=== PATIENT | male | born 1945 | race Caucasian/White ===

== ENCOUNTER 2019-08-04 19:22 | Inpatient (IN) | payer OTHER, MEDICARE ==
[~2019-08-04] VITALS: Ht 180.3 cm; Wt 82.9 kg
--- NOTE | ~2019-08-04 | EMS ---
[address] [address] EMS Patient Care Report Name: RAYNA NGUYEN Room #: 207-P ADM IN M.R.#: [id number] Admission: 08/04/19 Attend Phys: Stephania Orozco MD Discharge: Date of : 45 Report #: [id number] THIS REPORT FOR: //name// Report Transmitted: 08/05/2019 01:47 EMS Care Summary [facility] MED-ACT Incident [id number] @ 08/04/2019 18:23 Incident Location [address] [place] [address] Patient RAYNA NGUYEN Male, 74 Years 1945 Patient Address [address] [place] [address] Patient History Other,Cardiac Arrythmia,Depression, Patient Allergies No known allergies, Patient Medications Trazodone, Tamsulosin, Chief Complaint "My indigestion won't go away" Disposition Transported No Lights/[place] Dispatch Reason Chest Pain (Non-Traumatic) Transported To [facility] Narrative HISTORY: Upon EMS arrival the patient was laying supine on the ground. He stated he has had indigestion since 5pm, patient has a history of indigestion but normally the pain is not as intense, it goes away after taking alcaseltzer, and it normally has an onset after he eats a big meal usually with fatty food. [address] [address] EMS Patient Care Report Name: RAYNA NGUYEN Room #: 207-P [facility] IN [facility]#: [id number] Admission: 08/04/19 Attend Phys: Stephania Orozco MD Discharge: Date of : 45 Report #: [id number] He stated the pain came on acutley without warning and his alcaseltzer did not relive the pain. He rated the pain an 8/10 and he stated 10 min prior to EMS arrival he became clammy. He denied any synopal episode, weakness, increase in pain with exertion, pain with deep respirations, numbness or tingling. Patient staetd he has a "weak sphyncter" in his stomach. Patient stated he has a history of an irregular heart beat with PVC's. The patient denied having any history of heart attacks. He denied any SOB, syncopal episode, change in vision, radiating pain to his jaw, arm, or back, or N/V. Patient stated the pain was sharp in nature. He denied any recent surgeries, fevers, cough, illnesses, sore throat, or body aches. The patient stated he took four baby aspirin prior to EMS arrival per dispatches instructions. Patient denied any lightheadedness, dizziness, or change in pain when he sat up or stood up. TREATMENT: V/S monitored, 324mg of ASA taken orally prior to EMS arrival, bilateral BP's, EKG, 12 lead, IV established, BG, TEMP, patient was put on 2lpm of O2 via NC because of the frequency of the PVC's, patient was offered pain medications but he stated he did not want any narcotic pain medication, exams were repeated. TRANSPORT: The patient was able to stand and walk to the cot on his own power, he moved to the ED bed on his own power without incident. DESTINATION: Patient was taken to [facility] ED room 6, report was given to nursing staff. Initial Vitals @18:54P: 53, @18:48P: 55,PR Suspected: false @PTAR: 16,BP: 140/72,SpO2: 99, @PTAP: 64,R: 16,BP: 150/100,SpO2: 99, @19:08P: 54,R: 16,BP: 168/74,SpO2: 99, @18:56P: 57,PR Suspected: false @18:50P: 54,R: 16,BP: 134/81,Pain: 8/10,GCS: 15,Temp: 97.4F,Glucose: 135,SpO2: 99,Revised Trauma: 12, @19:15P: 60,R: 16,BP: 153/79,SpO2: 99, Assessments @18:33MENTAL:Person Oriented,Place Oriented,Time Oriented,Event Oriented,SKIN:HEENT:Eyes: No Abnormalities,LUNG SOUNDS:ABDOMEN:PELVIS//GI:EXTREMITIES:PULSE:Radial: 2+ Normal,NEURO: Impression Chest Pain / Discomfort [address] [address] EMS Patient Care Report Name: WENDYRAYNA G Room #: 207-P [facility] IN M.R.#: [id number] Admission: 08/04/19 Attend Phys: Stephania Orozco MD Discharge: Date of : 45 Report #: [id number] Procedures @18:5612-Lead ECGResponse: UnchangedSucceeded@18:54Saline Lock 10cc (20 ga) Site: Antecubital-LeftResponse: UnchangedSucceeded@PTAAspirin - 324 Milligrams (mg) - OralResponse: Unchanged@18:52Oxygen FlowRate: 2 Device: Nasal Cannula (NC) Response: UnchangedSucceeded Timeline 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,Aspirin - 324 Milligrams (mg) - Oral,Response: Unchanged 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,BP: 140/72 M,PULSE: ,RR: 16 R,SPO2: 99 Ox,ETCO2: ,BG: ,PAIN: ,GCS: , 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,BP: 150/100 M,PULSE: 64,RR: 16 R,SPO2: 99 Ox,ETCO2: ,BG: ,PAIN: ,GCS: , 18:20,Call Received 18:20,Psap Call 18:23,Dispatched 18:24,En Route 18:30,On Scene 18:32,At Patient 18:48,BP: / M,PULSE: 55,RR: R,SPO2: Ox,ETCO2: ,BG: ,PAIN: ,GCS: , 18:50,BP: 134/81 M,PULSE: 54,RR: 16 R,SPO2: 99 Ox,ETCO2: ,B,PAIN: 8,GCS: 15, 18:52,Oxygen FlowRate: 2 Device: Nasal Cannula (NC) Response: UnchangedSucceeded, 18:54,Saline Lock 10cc 20 ga Site: Antecubital-Left,Response: UnchangedSucceeded, 18:54,BP: / M,PULSE: 53,RR: R,SPO2: Ox,ETCO2: ,BG: ,PAIN: ,GCS: , 18:56,12-Lead ECG,Response: UnchangedSucceeded, 18:56,BP: / M,PULSE: 57,RR: R,SPO2: Ox,ETCO2: ,BG: ,PAIN: ,GCS: , 18:58,Depart Scene 19:08,BP: 168/74 M,PULSE: 54,RR: 16 R,SPO2: 99 Ox,ETCO2: ,BG: ,PAIN: ,GCS: , 19:15,BP: 153/79 M,PULSE: 60,RR: 16 R,SPO2: 99 Ox,ETCO2: ,BG: ,PAIN: ,GCS: , 19:16,At Destination 19:45,Call Closed Disclaimer v1.1 Copyright 2020 [employer] This EMS Care Summary contains data elements from the applicable legal record (which may be displayed differently). It is designed to provide pertinent information for the following purposes: continuity of care, clinical quality, and state data reporting. The complete legal record is available to ED staff and administrators of the receiving hospital in [employer]'s Patient Tracker. All data is provided "as is."
[~2019-08-04 19:22] MED LIST: ASA5UEC; FLOMAX PO; IMODIUM A-D1 MG/5 ML PO; MUCINEX600 MG PO; VITAMINS A-D-E1 EACH PO
[2019-08-04 19:23] VITALS: BP 113/85
[2019-08-04 19:39] LABS: ABSOLUTE NEUTROPHILS 5.4 thou/uL (1.4-8.2); BASOPHILS 0.3 % (0.0-2.0); EOSINOPHILS 0.7 % (0.0-3.0); HEMATOCRIT 42.8 % (42.0-52.0); HEMOGLOBIN 14.7 gm/dL (14.0-18.0); LYMPHOCYTES 16.3 % (24.0-44.0); MCHC 34.2 g/dL (28.0-37.0); MCV 96.5 fL (80.0-100.0); MONOCYTES 10.3 % (1.0-8.0); PLATELET COUNT 225 thou/uL (150-400); POLYS 72.4 % (36.0-66.0); RBC 4.43 mil/uL (4.50-6.00); RDW 13.7 % (10.5-14.5); WBC 7.5 thou/uL (4.0-11.0)
[2019-08-04] MEDS ORDERED: B COMPLEX1 EACH PO (19:50)
[2019-08-04 19:51] LABS: ANION GAP 12 mmol/L (7-16); BUN 22 mg/dL (7-18); CALCIUM 9.5 mg/dL (8.5-10.1); CHLORIDE 103 mmol/L (98-107); CO2 25 mmol/L (21-32); GLUCOSE 133 mg/dL (74-106); POTASSIUM 3.4 mmol/L (3.5-5.1); SODIUM 140 mmol/L (136-145)
[2019-08-04 19:55] LABS: APTT 28.1 Seconds (24.5-32.8); INR 1.2; PROTIME 12.2 Seconds (9.3-11.4)
[2019-08-04 20:01] LABS: SGOT 19 U/L (15-37); SGPT 34 U/L (30-65); TOTAL BILIRUBIN 0.7 mg/dL (<0.1-1.0); TROPONIN-I <0.06 ng/mL (<0.06)
[2019-08-04 22:17] VITALS: BP 158/75
[2019-08-04 22:28] VITALS: BP 158/75
[2019-08-04 22:33] VITALS: BP 155/71
[2019-08-04 22:48] LABS: CHOLESTEROL 114 mg/dL (<200); HDL CHOLESTEROL 32 mg/dL (>40); LDL CHOLESTEROL 70 mg/dL (<100); TC:HDL 3.6 Ratio (Not establshd); TRIGLYCERIDE 61 mg/dL (<150); VLDL 12 mg/dL (<40)
[2019-08-04 22:59] LABS: SERUM ASSESSMENT Clear
--- NOTE | 2019-08-05 00:28 | NUR ---
PT ADMITTED FROM HOME TO ED. PT REPORTED CHEST PAIN HEARTBURN THIS EVENING THAT WAS MORE SEVERE THAN USUAL AND NOT ABLE TO BE RELIEVED BY HOME HEART BURN MEDICATIONS. PT STATED HE NORMALLY HAS HEARTBURN AND PAIN IN THE AFTERNOON NOT EVENING. HE STATED HE CALLED EMS AND MENTIONED NOW HIS NEIGHBORS KNOW HE IS AT THE HOSPITAL. PT REPORTS CHRONIC PAIN NECK AND SHOULDER ISSUES RATED 5 TAKES TYLENOL. REPORTS INCREASE WORKLOAD FROM HOME RELATED TO COVID AND INCREASE IN STRESS RELATED TO THIS BUT GRATEFUL WORKING. 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 PT ALSO STATED HE WANTED TO HAVE A GI CONSULT THAT HE HAS NOT PREVIOUSLY HAD A COLONSCOPY. VERBALIZED UNDERSTANDING TO CALL FOR ASSISTANCE WITH AMBULATION. IVF INTACT. NO C/O PAIN AT THIS TIME. PT HAS HAD PHONE CONTACT WITH HIS . REPORTED HOPES FOR DC IN AM.
[2019-08-05 05:51] VITALS: BP 127/70
[2019-08-05 07:30] VITALS: BP 123/74
[2019-08-05 11:08] VITALS: BP 123/74
--- NOTE | 2019-08-05 13:58 | NUR ---
ASSUMED CARE OF PATIENT AT 0700. ASSESSMENT COMPLETED. PATIENT C/O ACHE IN EPIGASTRIC AREA AT 2/10, STATES THAT IT IS SIGNIFICANTLY DECREASED FROM FIRST ADMISSION. PAIN WAS COMPLETELY GONE AFTER BREAKFAST. CARDIOLOGY CONSULT AND EKG PERFORMED. DR. NAGY ORDERED CARDIOLOGY PROCEDURES TO BE DONE AN OUTPATIENT. DISCHARGE ORDERS GIVEN. IV AND TELE REMOVED. DISCHARGE PAPERWORK AND CHANGE IN MEDS REVIEWED. PATIENT TAKEN VIA WHEELCHAIR TO THE EMERGENCY ENTRANCE WHERE HE WAS DRIVEN HOME BY HIS . PATIENT STATES THAT HE FEELS BETTER THAN HE DID WHEN HE ARRIVED AND STATES THAT HE HAS ALL OF HIS BELONGINGS.
[2019-08-06 07:08] LABS: GLYCOHEMOGLOBIN (HGB A1C) 5.6 % (4.8-5.6)
--- NOTE | 2019-08-06 08:03 | EKG ---
[facility] [place] [address] ELECTROCARDIOGRAM REPORT Name: RAYNA NGUYEN Room #: 207-[facility] IN M.R.#: [id number] Admission: 08/04/19 Attend Phys: Stephania Orozco MD Discharge: 08/05/19 Date of : 45 Report #: [id number] THIS REPORT FOR: cc: Kevin Gill MD, Christopher B. 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: [place] : 1945 Requested By: Ke Chavira Order Number: [id number] MD: Ernesto Wilson Measurements Intervals [place] Rate: 51 P: 64 MS: 184 QRS: 23 QRSD: 99 T: 60 QT: 420 QTc: 387 Interpretive Statements Sinus rhythm Abnormal R-wave progression, early transition Baseline wander in lead(s) V3 Compared to ECG 11/07/2009 16:50:02 Ventricular premature complex(es) no longer present Electronically Signed On 08-06-2019 8:01:10 CDT by Ernesto Wilson [email or web address] <ELECTRONICALLY SIGNED> By: Ernesto Wilson MD, [facility] 08/06/19800 19 19 Ernesto Wilson MD, [facility] /EPI
--- NOTE | 2019-08-06 08:04 | EKG ---
[facility] [place] [address] ELECTROCARDIOGRAM REPORT Name: RAYNA NGUYEN Room #: 207-P DIS IN M.R.#: [id number] Admission: 08/04/19 Attend Phys: Stephania Orozco MD Discharge: 08/05/19 Date of : 45 Report #: [id number] THIS REPORT FOR: cc: Kevin Gill MD, Christopher B. MD Lundgren,Ernesto Reddy MD 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 08/06/19802 6 6 Ernesto Wilson MD, [facility] /EPI
== END 2019-08-05 12:46 | disposition home or self-care (01) | DRG 310 ==
LOC: ER 19:22 → EROBS 21:50 → 2N 22:26
PROVIDERS: Emergency Medicine; Nurse Practitioner Family; ADMIT Internal Medicine
DX: I49.3 Ventricular premature depolarization (principal); K21.9 Gastro-esophageal reflux disease without esophagitis; K58.9 Irritable bowel syndrome, unspecified; N40.0 Benign prostatic hyperplasia without lower urinary tract symptoms; K57.90 Diverticulosis of intestine, part unspecified, without perforation or abscess without bleeding; K40.90 Unilateral inguinal hernia, without obstruction or gangrene, not specified as recurrent; G89.29 Other chronic pain; M54.9 Dorsalgia, unspecified; Z79.899 Other long term (current) drug therapy; Z91.048 Other nonmedicinal substance allergy status; Z82.49 Family history of ischemic heart disease and other diseases of the circulatory system; Z87.891 Personal history of nicotine dependence
CPT/HCPCS: 10081

== ENCOUNTER 2019-08-06 05:29 | Inpatient (IN) | payer OTHER, MEDICARE ==
[~2019-08-06] VITALS: Ht 180.3 cm; Wt 78.9 kg
[~2019-08-06 05:29] MED LIST changes: +B COMPLEX1 EACH PO
[2019-08-06 05:39] VITALS: BP 141/75
[2019-08-06 06:45] LABS: ABSOLUTE NEUTROPHILS 15.4 thou/uL (1.4-8.2); BASOPHILS 0.1 % (0.0-2.0); HEMATOCRIT 41.3 % (42.0-52.0); HEMOGLOBIN 13.9 gm/dL (14.0-18.0); LYMPHOCYTES 2.1 % (24.0-44.0); MCH 32.7 pg (26.0-34.0); MCHC 33.6 g/dL (28.0-37.0); MCV 97.4 fL (80.0-100.0); MONOCYTES 10.4 % (1.0-8.0); PLATELET COUNT 196 thou/uL (150-400); POLYS 87.4 % (36.0-66.0); RBC 4.24 mil/uL (4.50-6.00); RDW 14.2 % (10.5-14.5); WBC 17.6 thou/uL (4.0-11.0)
[2019-08-06 06:56] LABS: ANION GAP 8 mmol/L (7-16); BUN 12 mg/dL (7-18); CALCIUM 9.6 mg/dL (8.5-10.1); CHLORIDE 103 mmol/L (98-107); CO2 28 mmol/L (21-32); CREATININE 0.9 mg/dL (0.7-1.3); GLUCOSE 111 mg/dL (74-106); SODIUM 139 mmol/L (136-145)
[2019-08-06 07:10] LABS: ALBUMIN 3.7 g/dL (3.4-5.0); LIPASE 83 U/L (73-393); SGOT 27 U/L (15-37); SGPT 32 U/L (30-65); TOTAL BILIRUBIN 1.7 mg/dL (<0.1-1.0); TROPONIN-I <0.06 ng/mL (<0.06)
--- NOTE | 2019-08-06 08:14 | EKG ---
[facility] [place] [address] ELECTROCARDIOGRAM REPORT Name: RAYNA NGUYEN Room #: [facility]#: [id number] Admission: 08/06/19 Attend Phys: Discharge: Date of : 45 Report #: [id number] THIS REPORT FOR: cc: Kevin Gill MD, Christopher B. MD Lundgren,Ernesto Reddy MD [facility] ~ THIS REPORT FOR: //name// [facility] ED Test Date: 2019-08-06 Test Time: 06:29:07 Pat Name: RAYNA NGUYEN Department: Room: Gender: Check Pilot: [place] [id number] : 1945 Requested By: Ke Chavira Order Number: [id number] MD: Ernesto Wilson Measurements Intervals [place] Rate: 74 P: 30 VA: 160 QRS: -11 QRSD: 99 T: 25 QT: 360 QTc: 400 Interpretive Statements Sinus rhythm RSR' in V1 or V2, right VCD Compared to ECG 11/07/2009 16:50:02 No significant change was found Electronically Signed On 08-06-2019 8:12:57 CDT by Ernesto Wilson [email or web address] <ELECTRONICALLY SIGNED> By: Ernesto Wilson MD, [facility] 08/06/19 0812 0629 Ernesto Wilson MD, [facility] /EPI
[2019-08-06 10:00] LABS: LARGE PLATELETS OCCASIONAL
[2019-08-06 16:08] VITALS: BP 122/66
--- NOTE | 2019-08-06 16:28 | NUR ---
74 YO MALE ADMITTED TO 443 BY CART FROM ED. A&OX4. IV INTACT IN R AC INFUSING FLUIDS ORDERED. PT UP WITH STAND BY ASSIST. MRCP WAS COMPLETED TODAY. ERCP WILL BE TOMORROW. ORIENTED PT TO ROOM/ CALL LIGHT. PLACED PT ON REG DIET, WILL BE NPO AFTER MN. WILL CONT POC.
[2019-08-06 19:27] VITALS: BP 106/64
[2019-08-07] VITALS (9 sets, daily range): BP systolic 105–138; BP diastolic 52–74
[2019-08-07 02:09] LABS: URINE BILIRUBIN 1+ (Negative); URINE BLOOD 1+ (Negative); URINE CLARITY CLEAR; URINE COLOR YELLOW; URINE GLUCOSE-RANDOM* NEGATIVE (Negative); URINE KETONES NEGATIVE (Negative); URINE LEUKOCYTES-REFLEX NEGATIVE (Negative); URINE NITRITE-REFLEX NEGATIVE (Negative); URINE PROTEIN (DIPSTICK) 1+ (Negative); URINE SPECIFIC GRAVITY 1.025 (1.005-1.035)
[2019-08-07 02:32] LABS: BACTERIA-REFLEX 1-9 Few /HPF (None Seen); CASTS None Seen /LPF (None Seen); CRYSTALS None Seen /LPF (None Seen); MUCUS 0-3 Light strn/LPF (None Seen); SQUAMOUS 0-3 Few /LPF (0-3); URINE RBC 3-10 Few /HPF (0-2); URINE WBC-REFLEX 0-5 Rare /HPF (0-5)
--- NOTE | 2019-08-07 05:25 | NUR ---
ASSESSED AT START OF SHIFT PT A&OX4. C/O MILD HEADACHE RELIEF WITH TYLENOL. PT UP AD JORDI TO THE BATHROOM. UA COLLECTED AND SENT TO LAB. IV INTACT AND ABX INFUISING. CALLED DR ANDERSON PT NPO FOR POSSIBLE ERCP TOMORROW. CALL LIGHT IN REACH WILL CONT WITH POC TILL EOS.
[2019-08-07 09:19] LABS: ALBUMIN 2.8 g/dL (3.4-5.0); CALCIUM 9.1 mg/dL (8.5-10.1); CREATININE 1.1 mg/dL (0.7-1.3); POTASSIUM 3.6 mmol/L (3.5-5.1); TOTAL BILIRUBIN 2.2 mg/dL (<0.1-1.0)
--- NOTE | 2019-08-07 09:48 | NUR ---
ASSESSMENT: CM REVIEWED CHART AND SPOKE WITH PATIENTS . PT IS OUT IN SURGERY THIS AM FOR CASI LUCAS. 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 REPORTS PATIENT DOES NOT HAVE ANY DME OR THE NEED FOR IT. PT LIVES IN A HOUSE WITH HIS . SHE REPORTS HAVING ABOUT 11 STEPS FROM THE GARAGE TO ENTER THE MAIN LEVEL OF THE HOME THAT HAS HANDRAILS. SHE STATES PATIENT HAS NEVER HAD HH OR BEEN TO A SNF. CM DISCUSSED ROLE. PT ANTICIPATES DISCHARGING HOME WITH NO NEEDS AT DISCHARGE. CM WILL CONTINUE TO FOLLOW TO ASSIST NEDED.
--- NOTE | 2019-08-07 17:58 | NUR ---
Assumed care of pt at 0700. Pt a&ox4. Pt had lapascopic cholecystectomy this am. Incisions c/d/i. Pain controlle with prn pain meds. Family called by doctor and patient. States he does not want nurse to call family. Tolerating diet well. Voided well post-op. Call light within reach. Will continue to monitor.
[2019-08-08 05:36] VITALS: BP 131/67
[2019-08-08 07:40] VITALS: BP 138/75
--- NOTE | 2019-08-08 08:04 | NUR ---
PT HAD A LOW GRADE TEMP AT THE START OF SHIFT,TYLENOL ADMINISTERED,EFFECTIVE PT UP ADLIB IN ROOM TO THE BR.4 LAP SITES C/D/I.PT STATED THAT HE TAKES FLOMAX AND PEPCID NEEDED AT HOME,BUT HE DOESN'T HAVE THE ORDER NOW.AM NURSE NOTIFIED TO FOLLOW UP ON.PT LOOKING FORWARD TO BE DC TODAY.REPORT TO AM NURSE.
[2019-08-08 09:41] VITALS: BP 138/75
[2019-08-08 12:17] VITALS: BP 138/75
--- NOTE | 2019-08-08 12:18 | O ---
[facility] [place] [address] OPERATIVE REPORT Name: RAYNA NGUYEN Room #: 443-P [facility] IN M.R.#: [id number] Admission: 08/06/19 Attend Phys: Navi Guan MD Discharge: 08/08/19 Date of : 45 Report #: [id number] THIS REPORT FOR: cc: Kevin Gill MD, Christopher B. MD Patterson,Marlon Grissom MD ~ CC: Kevin Guan DATE OF SERVICE: 08/07/2019 POSTOPERATIVE DIAGNOSIS: Acute cholecystitis. POSTOPERATIVE DIAGNOSIS: Acute gangrenous cholecystitis. OPERATION: Laparoscopic cholecystectomy with intraoperative cholangiogram. SURGEON: Marlon Gu MD ANESTHESIA: General. ESTIMATED BLOOD LOSS: Minimal. SPECIMEN: Gallbladder. DESCRIPTION OF PROCEDURE: After informed consent was obtained, the patient was brought to the operating room and placed supine. SCDs were placed and working, preoperative antibiotics were administered, general anesthesia was induced. The abdomen was prepped and draped in the usual sterile fashion. A 10 mm incision was made below the umbilicus. Fascia was incised and a trocar was placed. Pneumoperitoneum was established. Three right upper quadrant 5 mm ports were placed. Gallbladder was grasped at the fundus and retracted cephalad. Infundibulum was grasped and retracted laterally. I dissected out the cystic duct and the cystic artery. A ductotomy was made in the cystic duct. The cholangiogram catheter was inserted. Cholangiogram was then performed. This demonstrated a short cystic duct, filling of the common bile duct, filling of the common hepatic duct, bifurcation of the hepatics, smooth flow into the duodenum. There were no filling defects. Cholangiogram catheter was then removed. The cystic duct was clipped and ligated with a clip and a PDS Endoloop. The gallbladder was then again inspected. It was noted to be a gangrenous with patchy areas of yara gangrene. Cystic artery was clipped and ligated with a clip. Gallbladder was then taken off the liver bed with electrocautery. It was placed into an Endopouch and removed. The gallbladder fascia was then copiously irrigated. The fascia was then closed with a [id number] 0 Vicryl. Skin was closed with 4-0 Monocryl. Incisions were sealed with Dermabond. [address] [address] OPERATIVE REPORT Name: RAYNA NGUYEN Room #: 443-P [facility] IN M.R.#: [id number] Admission: 08/06/19 Attend Phys: Navi Guan MD Discharge: 08/08/19 Date of : 45 Report #: [id number] COMPLICATIONS: None. DISPOSITION: The patient was taken to recovery in satisfactory condition. <ELECTRONICALLY SIGNED> By: Marlon Gu MD 08/08/19 1218 1034 1047 Marlon Gu MD /audra
--- NOTE | 2019-08-08 12:19 | NUR ---
VSS-AFEBRILE. LUNGS CLEAR-ROOM AIR. ABLE TO DEMONSTRATE EFFECTIVE USE OF INCENTIVE SPIROMETER. ABDOMINAL INCISIONS INTACT WITH SURGICAL GLUE, NO S/S OF INFECTION. NO DIFFICULTY VOIDING, SMALL FORMED BM THIS MORNING. TOLERATING MEALS WITH NO REPORTED N/V. DISCUSSED DISCHARGE INSTRUCTIONS, VERBALIZED UNDERSTANDING OF ALL DISCUSSED MATERIAL. OOB AD JORDI-STEADY ON FEET. REMOVED PERIPHERAL IV, TOLERATED WELL. LEFT UNIT WITH NURSING STAFF IN WHEELCHAIR TO PRIVATE VEHICLE, SPOUSE TO TRANSPORT PATIENT HOME. ALL PERSONAL BELONGINGS SENT WITH PATIENT.
== END 2019-08-08 12:18 | disposition home or self-care (01) | DRG 417 ==
LOC: ER 05:29 → EROBS 09:50 → 4S 09:50
PROVIDERS: Emergency Medicine; Surgery; ADMIT Surgery; ATTEND Surgery
PROC: 0FT44ZZ Resection of Gallbladder, Percutaneous Endoscopic Approach (ICD-10-PCS; principal; 2019-08-07)
PROC: BF131ZZ Fluoroscopy of Gallbladder and Bile Ducts using Low Osmolar Contrast (ICD-10-PCS; principal; 2019-08-07)
DX: K81.0 Acute cholecystitis (principal); R65.11 Systemic inflammatory response syndrome (SIRS) of non-infectious origin with acute organ dysfunction; M54.9 Dorsalgia, unspecified; G89.29 Other chronic pain; M54.2 Cervicalgia; K58.9 Irritable bowel syndrome, unspecified; N40.0 Benign prostatic hyperplasia without lower urinary tract symptoms; K82.A1 Gangrene of gallbladder in cholecystitis; Z79.899 Other long term (current) drug therapy; Z90.89 Acquired absence of other organs; Z88.8 Allergy status to other drugs, medicaments and biological substances; Z87.891 Personal history of nicotine dependence; Z03.818 Encounter for observation for suspected exposure to other biological agents ruled out
CPT/HCPCS: 10195; 50010; 50101; 50411; 50555; 50900; 51297; 51489; 51751; 52265; 52266; 53307; 53312; 53314; 55245; 56462; 56525; 57103; 62110; 62900; 70005

== ENCOUNTER → 2020-08-15 | Outpatient (CLI) | payer OTHER, MEDICARE | LOC: RAD 12:25 | PROVIDERS: ATTEND Surgery | DX: J32.2 Chronic ethmoidal sinusitis (principal); M79.89 Other specified soft tissue disorders; M47.814 Spondylosis without myelopathy or radiculopathy, thoracic region ==